=== PATIENT | male | born 2005 | race Caucasian/White ===

== ENCOUNTER 2025-07-31 04:40 | Emergency (ER) | payer SELFPAY | END 2025-07-31 07:06 | disposition home or self-care (01) | LOC: CSHERS 04:40 | DX: R09.A2 Foreign body sensation, throat (principal); F41.9 Anxiety disorder, unspecified | CPT/HCPCS: 70360; 93005; 93010; 99283; Q0162 ==

== ENCOUNTER 2025-08-01 12:06 | Emergency (ER) | payer SELFPAY ==
[2025-08-01] MEDS ORDERED: ALPRAZolam 0.5 MG TAB ONE (12:24)
[2025-08-01 12:50] LABS: Cocaine Metabolite Screen Negative (Negative); THC/Cannabinoid Screen PRELIM POSITIVE (Negative); Tricyclic Screen PRELIM POSITIVE (Negative)
[2025-08-01 12:56] LABS: #Basophils 0.06 10x3/uL (0.0-0.2); #Eosinophils 0.19 10x3/uL (0.0-0.5); #Monocytes 0.85 10x3/uL (0.0-1.1); #Neutrophils 5.51 10x3/uL (1.5-8.4); %Basophils 0.7 % (0.0-2.0); %Eosinophils 2.2 % (0.0-6.0); %Lymphocytes 22.1 % (18.0-47.0); %Monocytes 10.0 % (0.0-10.0); %Neutrophils 64.5 % (40.0-75.0); Hematocrit 44.5 % (38.8-50.0); Hemoglobin 15.5 g/dL (13.5-17.5); Mean Corpuscular Hemoglobin 29.9 pg (27.0-33.0); Mean Corpuscular Volume 85.7 fL (81.2-95.1); Platelet Count 237 10x3/uL (150-450); Red Blood Cell (RBC) Count 5.19 10x6/uL (4.32-5.72); White Blood Cell (WBC) Count 8.54 10x3/uL (3.5-10.5)
[2025-08-01 13:13] LABS: ALT (SGPT) 23 U/L (Less than 45); AST (SGOT) 24 U/L (11-34); Albumin 4.5 g/dL (3.1-4.5); Alkaline Phosphatase 68 U/L (40-110); Anion Gap 14 mmol/L (10-20); BUN (Urea Nitrogen) 13 mg/dL (8.9-20.6); Bilirubin, Total 1.3 mg/dL (0.3-1.2); Calc. Creatinine Clearance 0 mL/min (70-130); Calcium 9.4 mg/dL (7.8-10.44); Carbon Dioxide 22 mmol/L (22-29); Chloride 105 mmol/L (98-107); Globulin 3.0 g/dL (2.4-3.5); Glucose 102 mg/dL (70-105); Potassium 3.3 mmol/L (3.5-5.1); Sodium 138 mmol/L (136-145)
== END 2025-08-01 14:05 | disposition home or self-care (01) ==
LOC: CSHERS 12:06
DX: F41.1 Generalized anxiety disorder (principal); F19.90 Other psychoactive substance use, unspecified, uncomplicated; E66.9 Obesity, unspecified
CPT/HCPCS: 36415; 80053; 80306; 85025; 99284